=== PATIENT | male | born 1950 | race Caucasian/White ===

== ENCOUNTER 2024-10-06 10:29 | Outpatient (REF) | payer MEDICARE, SELFPAY ==
--- NOTE | ~2024-10-06 | XR_ITS ---
EXAMINATION: XR PELVIS 3 OR MORE VIEWS, XR LUMBAR SPINE 4 OR MORE VIEWS HISTORY: M54.9 - Dorsalgia, unspecified COMPARISON: There are no prior studies for comparison. FINDINGS: AP, and neutral, flexion, and extension lateral views of the lumbar spine and a single AP view of the pelvis are submitted. The vertebral bodies maintain normal height and alignment without evidence of fracture or spondylolisthesis. There is no abnormal motion with flexion or extension. There is diffuse mild degenerative disc disease with disc space narrowing and osteophyte formation. There is osteoarthritis of the facet joints. The bones of the pelvis are intact without evidence of fracture or dislocation. There is degenerative change of the sacroiliac joints. The hip joint spaces are maintained. There are vascular calcifications. XR/XR lumbar spine 4V min IMPRESSION: 1. Mild degenerative disc disease. No abnormal motion with flexion or extension. 2. No evidence of fracture of the pelvis. Electronically signed by: Mihir Jacobs MD 10/14/2024 07:16 AM HUSSEIN
--- NOTE | ~2024-10-06 | XR_ITS ---
EXAMINATION: XR PELVIS 3 OR MORE VIEWS, XR LUMBAR SPINE 4 OR MORE VIEWS HISTORY: M54.9 - Dorsalgia, unspecified COMPARISON: There are no prior studies for comparison. FINDINGS: AP, and neutral, flexion, and extension lateral views of the lumbar spine and a single AP view of the pelvis are submitted. The vertebral bodies maintain normal height and alignment without evidence of fracture or spondylolisthesis. There is no abnormal motion with flexion or extension. There is diffuse mild degenerative disc disease with disc space narrowing and osteophyte formation. There is osteoarthritis of the facet joints. The bones of the pelvis are intact without evidence of fracture or dislocation. There is degenerative change of the sacroiliac joints. The hip joint spaces are maintained. There are vascular calcifications. XR/XR pelvis min 3V IMPRESSION: 1. Mild degenerative disc disease. No abnormal motion with flexion or extension. 2. No evidence of fracture of the pelvis. Electronically signed by: Mihir Jacobs MD 10/14/2024 07:16 AM HUSSEIN
== END 2024-10-06 10:30 | disposition home or self-care (01) ==
LOC: HO.HOSX 10:29
PROVIDERS: PCP Internal Medicine; Visit Provider Physician Assistant
DX: M54.9 Dorsalgia, unspecified (principal); M46.1 Sacroiliitis, not elsewhere classified
CPT/HCPCS: 72110; 72190; 99202

== ENCOUNTER 2024-10-06 10:29 | Outpatient (AMB) | payer MEDICARE, SELFPAY ==
--- NOTE | 2024-10-06 10:31 | A.SPINEOV_ITS ---
Vital Signs 10/06/24 10:35 Height 5 ft 10 in Weight 163 lb BMI 23.4 Intake Visit Reasons: chronic recurrent sacroiliitis Intake Note: Mr. Nicolas is here today c/o Low back pain that radiates to up towards the neck. Member Of The [employer] Required: No Allergies No Known Allergies Allergy (Verified 10/06/24 10:36) Physical Exam Vital Signs: BMI result Body Mass Index 23.4 Assessment & Plan Assessment & Plan (1) Back pain: Code(s): M54.9 - Dorsalgia, unspecified Category: Medical Plan Dear Dr Rob, Thank you for referring Mr Nicolas to our office today. He is a very nice retired fox, presents for evaluation of sacroiliac pain that began about 4 years ago. Initially it was very manageable, but now has gotten to a point where he barely leaves his recliner all day. The pain is located along the belt line and does not radiate down his leg. It is aggravated with prolonged sitting or prolonged standing and walking. Bending forward is the worst position. The only place he can get comfortable at this point is in a recliner and he will spend most of his day doing that. He has tried things like Motrin and Tylenol but those really do not do much for him. Did undergo a number of injections at your office. It sounds like he may have had an facet block which gave him some relief, then he underwent an ablation and did not report any success from that. Then he underwent lateral branch blocks and had a 90% success rate for about a week. He was sent today for evaluation of possible SI joint fusion. Conservative treatment has been tried in the form of physical therapy, chiropractic, anti- inflammatories and cortisone injections as listed above. PMH: High cholesterol, diabetes but he is very well controlled, hypertension, hernia surgery. Other than that he tells me he is very healthy. Social hx: He has 2 glasses of scotch a day, does not smoke use any recreational drugs Medications: Metformin, lisinopril, rosuvastatin Allergies: None Physical exam: Patient is awake alert oriented no acute distress, very slow to stand up with a lot of discomfort trying to get to a vertical posture, he lays flat on the examining table and has ELIZABETH testing on the left with reproducible pain in the SI joint. Straight leg raise negative. Positive finger Devante test. Positive compression test to the SI joint area. Imaging review: There is a lumbar MRI done at [facility] and this shows some modest disc degeneration, I sent him for flexion-extension x-rays and it shows no signs of instability. AP pelvic view however shows very sclerotic SI joints. Impression: 74-year-old man presenting with sacroiliitis, pain across his belt line bilaterally, particularly worse if he sitting for any length of time constantly changing positions but also standing and walking can be uncomfortable. The pain has been there for 4 years and steadily gotten worse, it is at a point now where he barely leaves his recliner all day because of the amount of pain he is in trying to do activities. He did get 90% relief from the lateral branch blocks that you performed on him. He has sclerosis of his SI joints seen on the x-ray, and no significant lumbar pathology. Typically Dr. Ferro likes to successive injections with similar success before he considers SI joint fusion. I will send an order back to your office for consideration of another lateral branch block and if it has the similar response, we could see him back and book him for SI joint fusion. I did briefly discuss the procedure at length in the need for the subsequent injection. Thank you for allowing us to care for your patient. The total time spent with this visit with this patient was 45 minutes reviewing history, physical exam, lumbar and pelvic imaging review, and implementation of treatment plan or further diagnostic testing Conrado Ferro MD,PhD [facility] Orders: Orders XR lumbar spine 4V min Today M54.9 - Dorsalgia, unspecified XR pelvis min 3V Today M54.9 - Dorsalgia, unspecified Referrals Pain Management Referral M54.9 - Dorsalgia, unspecified Coding Level of Care Code New Pt Level 4 (15223) Diagnoses Back pain M54.9
[2024-10-06 10:35] VITALS: BMI 23.4
== END 2024-10-06 11:54 | disposition home or self-care (01) ==
PROVIDERS: PCP Internal Medicine; Visit Provider Physician Assistant
DX: M54.9 Dorsalgia, unspecified (principal)
CPT/HCPCS: 99204

== ENCOUNTER → 2024-10-06 11:08 | Outpatient (BNV) | payer MEDICARE, SELFPAY | PROVIDERS: PCP Internal Medicine; Visit Provider Radiology Diagnostic Radiology | DX: M54.9 Dorsalgia, unspecified (principal) | CPT/HCPCS: 72110; 72190 ==

== ENCOUNTER 2024-11-26 14:45 | Outpatient (AMB) | payer MEDICARE, SELFPAY ==
--- NOTE | 2024-11-26 14:48 | A.SPINEOV_ITS ---
Intake Visit Reasons: F/U 2nd set of inj didn`t work Intake Note: Mr. Nicolas is here today for a F/u after injections. Photographic Equipment Inspector Required: No Allergies No Known Allergies Allergy (Verified 10/06/24 10:36) Assessment & Plan Assessment & Plan (1) Back pain: Code(s): M54.9 - Dorsalgia, unspecified Category: Medical Plan Mr Nicolas came back to review the results of his latest lateral branch block. He did get relief after about 2 or 3 days and it lasted maybe 1-2 days of im provement in his pain. We would consider this a positive response to the injections so therefore we will as previously plan proceed with SI joint fusion. The patient wishes to have the left side done 1st because that it has been bothering him more. We discussed the procedure at length. We have tentatively planned it for 01/07/2025 Pt was given risk and benefits of surgery including but not limited to infection, hematoma , nerve injury,durotomy, weakness,bowel/bladder injury, persistent pain, hardware failure as well as the option to continue with conservative treatment and patient wishes to proceed with surgery. Pt is aware they should stop their aspirin 7 days prior to surgery. All questions were answered to the best of our ability. If there is anything about this patients medical history that we have overlooked or concerns you have about us proceeding with surgery we would appreciate any input you can offer. Total amount of time spent in this visit was 20 minutes in discussion of symptoms, previous lumbar and SI joint imaging results and subsequent plan of care Conrado Ferro MD,PhD [facility] Coding Level of Care Code Est Pt Level 3 (90332) Diagnoses Back pain M54.9
--- OUTSIDE RECORDS SUMMARY | 2024-11-26 15:53 | XMS_ITS ---
Author Organization [facility] Address [address] [place] [address] Care Team Providers Care Metal Bench Patternmaker Name Role Phone Nikolas Webb MD Primary Care Provider Unava ilable Sarah Serna Unavailable [phone] REASON FOR VISIT BULB SORTER PPWK Entered Encounters Encounter Location Date Provider Diagnosis [facility] [address] [place] [address] 11/02/2024 Sarah Serna Plan Of Treatment Next Appt Details Provider Name:Sarah Shah Kareem , 12/15/2024 01:00:00 PM, [address] [facility], [place], [address], Progress Notes * Vazquez LAWRENCE DDOB:[birth year] (74 yo M)Acc No.[id number]:11/02/2024 Patient:?Vazquez LAWRENCE :1950???Age:74 Y???Sex:Male Address:[address] [place] [address], [place], [address] * true * Date:? Generated for Printi ng/Fapeymang/eTransmitting on:?11/26/2024 03:52 PM EST
--- OUTSIDE RECORDS SUMMARY | 2024-11-26 15:53 | XMS_ITS | Patient Health Record ---
Author Organization [facility] Address [address] [place] [address] Care Team Providers Care Branner Machine Tender Name Role Phone Nikolas Webb MD Primary Care Provider Sarah Sher Unavailable [phone] Allergies Allergen (clinical drug ingredient) Drug/Non Drug Allergy documented on EMR Reaction Allergy Type Onset Date Status Eggplant (uncoded) vomiting Allergy A ctive Reason For Referral No Information Medications Medication SIG (Take, Route, Frequency, Duration) Notes Start Date End Date Status Rosuvastatin Calcium Active Lisinopril Active glipiZIDE Not-Taking Diclofenac Sodium Ac tive Immunizations Vaccine Route Administration Date Status Comme nts Influenza Unknown 07/07/2018 Refused Influenza Unknown 07/28/2018 Administered Social History Tobacco Use: Social History Observation Description Date Details (start date - stop date) Never Smoker NA - NA Tobacco Use/Smoking Question Answer Notes Are you a: nonsmoker Additional Findings: Tobacco Non-User Current no n-smoker Alcohol Screen Question Answer Notes Did you have a drink contain ing alcohol in the past year? Yes How often did you have a dri nk containing alcohol in the past year? 2 to 4 times a month (2 points) Points 2 Interpretation Negative Tobacco use other than smoking: Question Answer Notes Are you an other tobacco user? No Problems Problem Type SNOMED Code ICD Code Onset Dates Problem Status W/U Status Risk Notes Problem Localized, primary osteoarthritis of the ankle and/or foot (722447938) Primary osteoarthrit is, left ankle and foot (M19.072) Active confirmed Encounters Encounter Location Date Provider Diagnosis [facility] [address] [place] [address] 10/19/2024 Sarah Kareem [facility] [address] [place] [address] 11/02/2024 Sarah Serna Plan Of Treatment Pending Test Test Name Order Date X ray : Foot, left 3V 07/07/2018 Next Appt Details Provider Name:Sarah Serna , 12/15/2024 01:00:00 PM, [address] [facility], [place], [address], Insurance Providers Payer Name Payer Address Payer Phone Subscriber Number Group Number Insured Name Patient Relationship to Insured Coverage Start Date Coverage End Date Medicare National Govt Svcs Inc [address] [place] [address] [id number] Vazquez Nicolas Self - patient is the insured 3 [employer] [address] [place] [address] [phone] [id number] Vazquez Nicolas Self - patient is the insured Medical (General) History Medical History History ICD Code Diabetic Hypertension Measles Mumps Back,Hip,and Knee pain covid-19 Gout Surgical History Surgery Date(Month/Year) Hernia
--- OUTSIDE RECORDS SUMMARY | 2024-11-26 15:53 | XMS_ITS ---
Author Organization [facility] Address [address] [place] [address] Care Team Providers Care Stock Roller Name Role Phone Nikolas Wbeb MD Primary Care Provider Unava ilable Sarah Serna Unavailable [phone] REASON FOR VISIT ON Encounters Encounter Location Date Provider Diagnosis [facility] [address] [place] [address] 10/19/2024 Sarah Serna Plan Of Treatment Next Appt Details Provider Name:Sarah Serna , 12/15/2024 01:00:00 PM, [address] [facility], [place], [address], Progress Notes * Vazquez LAWRENCE DDOB:[birth year] (74 yo M)Acc No.[id number]:10/19/2024 Patient:?Vazquez LAWRENCE :1950???Age:74 Y???Sex:Male Address:[address] [place] [address], [place], [address] * true * Date:? Generated for Printi amee/Ekta/eTransmitting on:?11/26/2024 03:52 PM EST
== END 2024-11-26 15:14 | disposition home or self-care (01) ==
PROVIDERS: PCP Internal Medicine; Visit Provider Physician Assistant
DX: M54.9 Dorsalgia, unspecified (principal)
CPT/HCPCS: 99213

== ENCOUNTER → 2024-11-26 14:45 | Outpatient (BNVA) | payer MEDICARE, SELFPAY | PROVIDERS: PCP Internal Medicine; Visit Provider Physician Assistant | DX: M54.9 Dorsalgia, unspecified (principal) | CPT/HCPCS: 99212 ==

== ENCOUNTER 2025-01-21 07:20 | Day surgery (SDC) | payer MEDICARE, SELFPAY ==
[2025-01-19 13:57] VITALS: BMI 24.8
--- NOTE | 2025-01-20 12:15 | P.CONAN_ITS ---
Documented by User: Stephanie Abebe NP 01/20/25 12:16 HPI - Anesthesia Eval Consult details Narrative: 74yo M for Left Sacroiliac Joint Fusion PMFSH Active Problems Active Problems: All Active Problems Back pain (Acute) Past Medical History Medical History Arthritis Arthralgia Sacroiliitis Diabetes HTN (hypertension) Elevated cholesterol Surgical History Surgical History Hx of hand surgery H/O colonoscopy Hx of hernia repair Social History Social History Are you a primary veterinarian laboratory animal care to a significant other at home: No Do you presently have visiting nurse or other home services: No Patient Tobacco Use Status: Never used Tobacco Use of substances other than those prescribed or required for medical reasons: No Have you been hit, kicked, punched, or otherwise hurt by someone within the past year? If so, by whom?: No Spiritual Healthcare Practices: no Congregational Healthcare Practices: no Cultural Healthcare Practices: no Are you DNR?: Yes Advance Directives Information Provided: Yes (advised to bring copies DOS) Advance Directives on File: No Poor oral hygiene: No Meds Allergies Allergy/AdvReac Type Severity Reaction Status Date / Time eggplant Allergy Intermediate Vomiting Verified 01/21/25 07:28 Home Medications ?Medication ?Instructions ?Recorded ?Confirmed ?Last Taken ?Type lisinopril 20 mg tablet 20 mg PO QAM 01/19/25 01/21/25 Unknown History metformin 500 mg tablet,extended 1,000 mg PO BID 01/19/25 01/21/25 Unknown History release 24 hr flwlcusr-ak-cdtop 300 mcg-K 60 1 tab PO QAM 01/19/25 01/21/25 Unknown History mcg-lycop 600 mcg-lutein 300 mcg tablet (Centrum Silver Men) rosuvastatin 5 mg tablet 5 mg PO BEDTIME 01/19/25 01/21/25 Unknown History Exam Height,Weight and Vital Signs: Height 5 ft 10 in Weight 78.471 kg Assessment and Plan Assessment Anesthesia Assessment: Chart Reviewed Documented by User: Verónica Mayfield MD 01/21/25 07:52 [facility] Past Medical History Medical History Arthritis Arthralgia Sacroiliitis Diabetes HTN (hypertension) Elevated cholesterol Surgical History Surgical History Hx of hand surgery H/O colonoscopy Hx of hernia repair History of Problems with Anesthesia: No Social History Social History Are you a primary veterinarian laboratory animal care to a significant other at home: No Do you presently have visiting nurse or other home services: No Patient Tobacco Use Status: Never used Tobacco Use of substances other than those prescribed or required for medical reasons: No Have you been hit, kicked, punched, or otherwise hurt by someone within the past year? If so, by whom?: No Spiritual Healthcare Practices: no Congregational Healthcare Practices: no Cultural Healthcare Practices: no Are you DNR?: Yes Advance Directives Information Provided: Yes (advised to bring copies DOS) Advance Directives on File: No Poor oral hygiene: No Meds Allergies Allergy/AdvReac Type Severity Reaction Status Date / Time eggplant Allergy Intermediate Vomiting Verified 01/21/25 07:28 Home Medications ?Medication ?Instructions ?Recorded ?Confirmed ?Last Taken ?Type lisinopril 20 mg tablet 20 mg PO QAM 01/19/25 01/21/25 Unknown History metformin 500 mg tablet,extended 1,000 mg PO BID 01/19/25 01/21/25 Unknown History release 24 hr cubyieoh-at-hjpyj 300 mcg-K 60 1 tab PO QAM 01/19/25 01/21/25 Unknown History mcg-lycop 600 mcg-lutein 300 mcg tablet (Centrum Silver Men) rosuvastatin 5 mg tablet 5 mg PO BEDTIME 01/19/25 01/21/25 Unknown History Exam Airway Mallampati Class: III TM Dist: >3cm Neck ROM: Full Loose/Missing/Broken Teeth: No Heart: RRR Lungs: CTA Assessment and Plan Assessment Anesthesia Assessment: Anesthesia Plan Discussed Final Anesthetic Review History of Problems with Anesthesia: No NPO: Yes ASA Class: III (significant ETOH consumption, several drinks of hard liquor a day) Final Preanesthetic Review: Meds/Allgs Chart Reviewed, Consent Obtained/Reviewed and Anes Risks/Benef Reviewed Patient Risk: Intermediate Procedure Risk: Intermediate Anesthetic Plan Anesthetic Plan: GA Disposition: Standard PACU
--- OUTSIDE RECORDS SUMMARY | 2025-01-20 13:55 | XMS_ITS | Patient Health Record ---
[facility] Address [address] [place] [address] Care Team Providers Care Software Configuration Specialist Name Role Phone Nikolas Webb MD Primary Care Provider Unava ilable Black, Sarah Unavailable [phone] Allergies Allergen (clinical drug ingredient) Drug/Non Drug Allergy documented on EMR Reaction Allergy Type Onset Date Status Eggplant (uncoded) vomiting Allergy A ctive Results Component Value Reference Range Notes HEMOGLOBIN A1C (GLYCOHEMOGLO BIN) Reviewed date:12/15/2024 03:22:35 PM Interpretation: Performing Lab: Notes/Report: HEMOGLOBIN A1C % (HH) 6.5 X ray : Foot, right 3V Reviewed date:12/15/2024 05:05:15 PM Interpretation:See Examination above Performing Lab: Notes/Report: See Examination above Reason For Referral No Information Medications Medication SIG (Take, Route, Frequency, Duration) Notes Start Date End Date Status Medrol kiarra 4mg as directed orally a s directed for 6 days 12/15/2024 Active Diclofenac Sodium No t-Taking glipiZIDE Not-Taking metFORMIN HCl Active Lisinopril Active Rosuvastatin Calcium Active Aspirin Active Immunizations Vaccine Route Administration Date Status Comme nts Influenza Unknown 07/07/2018 Refused Influenza Unknown 07/28/2018 Administered Social History Tobacco Use: Social History Observation Description Date Details (start date - stop date) Never Smoker NA - NA Tobacco use other than smoking: Question Answer Notes Are you an other tobacco user? 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) Active confirmed Problem Localized, primary osteoarthritis of the ankle and/or foot (812859904) Osteoarthritis of left ankle and foot (M19.072) Active confirmed Problem 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 (148876661) Acute idiopathic gout involving toe of right foot (M10.071) Active confirmed Vital Signs Blood pressure diastolic 68 mm Hg 12/15/2024 Height 5 ft 10 in in 12/15/2024 Blood pressure systolic 118 mm Hg 12/15/2024 Weight 160 lbs 12/15/2024 BMI 22.96 kg/m2 12/15/2024 Encounters Encounter Location Date Provider Diagnosis [facility] [address] [place] [address] 12/15/2024 Sarah Black Pain in right foot M79.671 ; Acute idiopathic gout involving toe of right foot M10.071 ; Pain in right ankle and joints of right foot M25.571 ; Bursitis of right foot M77.51 ; Acquired hallux interphalangeus of right foot M20.11 ; Osteoarthritis of left ankle and foot M19.072 and Type 2 diabetes mellitus without complications [facility] [address] 10/19/[facility]24 [facility]s [facility] [address] 11/02/2024 [facility]ingo [facility] [address] 12/15/2024 Sarah Serna [facility] [address] 12/21/2024 Sarah Serna Assessments Encounter Date Diagnosis (ICD Code) Assessment Notes Treatment Notes Treatment Clinical Notes Section Notes 12/15/2024 Pain in right foot (ICD-10 - M79.671) 12/15/2024 Acute idiopathic gout involving toe of right foot (ICD-10 - M10.071) 12/15/2024 Pain in right ankle and joints of right foot (ICD-10 - M25.571) 12/15/2024 Bursitis of right foot (ICD-10 - M77.51) 12/15/2024 Acquired hallux interphalangeus of right foot (ICD-10 - M20.11) 12/15/2024 Osteoarthritis of left ankle and foot (ICD-10 - M19.072) 12/15/2024 Type 2 diabetes mellitus without complications (ICD-10 - E11.9) Plan Of Treatment Pending Test Test Name Order Date *Uric Acid, Serum 12/15/2024 *Sedimentation Rate-Westergren C-Reactive Protein, Quant 12/15/2024 X ray : Foot, left 3V 07/07/2018 Insurance Providers Payer Name Payer Address Payer Phone Subscriber Number Group Number Insured Name Patient Relationship to Insured Coverage Start Date Coverage End Date Medicare National Govt Svcs Inc [address] [place] [address] [id number] Vazquez Nicolas Self - patient is the insured 3 [employer]ex Blue [facility] [address] [place] [address] [phone] [id number] Vazquez Nicolas Self - patient is the insured Medical (General) History Medical History History ICD Code Diabetic Hypertension Measles Mumps Back,Hip,and Knee pain covid-19 Gout Surgical History Surgery Date(Month/Year) Hernia
--- OUTSIDE RECORDS SUMMARY | 2025-01-20 13:56 | XMS_ITS ---
Author Organization [facility] Address [address] [place] [address] Care Team Providers Care Senior Ios Developer Name Role Phone Nikolas Webb MD Primary Care Provider Unava ilable Sarah Serna Unavailable [phone] REASON FOR VISIT A1C Encounters Encounter Location Date Provider Diagnosis [facility] [address] [place] [address] 12/15/2024 Sarah Serna Plan Of Treatment No Information Progress Notes * Vazquez LAWRENCE DDOB:[birth year] (74 yo M)Acc No.[id number]:12/15/2024 Patient:?Vazquez LAWRENCE :1950???Age:74 Y???Sex:Male Address:[address] [place] [address], [address] * true * Date:? Generated for Virgili amee/Ekta/eTransmitting on:?01/20/2025 01:55 PM EDT
--- OUTSIDE RECORDS SUMMARY | 2025-01-20 13:56 | XMS_ITS ---
Author Organization [facility] [place] Address [address] [place] [address] Care Team Providers Care Supervisor Hanging And Trimming Name Role Phone Nikolas Webb MD Primary Care Provider Unava ilable Black Sarah Unavailable [phone] Allergies Allergen (clinical drug ingredient) Drug/Non Drug Allergy documented on EMR Reaction Allergy Type Onset Date Status Eggplant (uncoded) vomiting Allergy A ctive Results Component Value Reference Range Notes X ray : Foot, right 3V Reviewed date:12/15/2024 05:05:15 PM Interpretation:See Examination above Performing Lab: Notes/Report: See Examination above REASON FOR VISIT Pcp- 12/01, Foot pain Medications Medication SIG (Take, Route, Frequency, Duration) Notes Start Date End Date Status Medrol kiarra 4mg as directed orally a s directed for 6 days 12/15/2024 Active metFORMIN HCl Active Lisinopril Active Rosuvastatin Calcium Active Aspirin Active Diclofenac Sodium No t-Taking glipiZIDE Not-Taking Social History Tobacco Use: Social History Observation Description Date Details (start date - stop date) Never Smoker NA - NA Tobacco use other than smoking: Question Answer Notes Are you an other tobacco user? No Tobacco Control (Standard) Question Answer Notes Tobacco use: Nonsmoker Additional Findings: Tobacco non-user Current no nsmoker AUDIT-C (Standard) Question Answer Notes Did you have a drink contain ing alcohol in the past year? Yes How often did you have a dri nk containing alcohol in the past year? Daily or almost daily (4 points) How many drinks did you have on a typical day when you were drinking in the past year? 1 or 2 drinks (0 point) How often did you have six o r more drinks on one occasion in the past year? 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) Active confirmed Problem Localized, primary osteoarthritis of the ankle and/or foot (769433929) Osteoarthritis of left ankle and foot (M19.072) Active confirmed Problem Type II diabetes mellitus without complication (828714275) Type 2 diabetes mellitus without complications (E11.9) Active confirmed Vital Signs Height 5 ft 10 in in 12/15/2024 Weight 160 lbs 12/15/2024 BMI 22.96 kg/m2 12/15/2024 Blood pressure systolic 118 mm Hg 12/16/19 25 Blood pressure diastolic 68 mm Hg 025 Encounters Encounter Location Date Provider Diagnosis [facility] [address] 12/15/2024 Sarah Black Pain in right foot M79.671 ; Acute idiopathic gout involving toe of right foot M10.071 ; Pain in right ankle and joints of right foot M25.571 ; Bursitis of right foot M77.51 ; Acquired hallux interphalangeus of right foot M20.11 ; Osteoarthritis of left ankle and foot M19.072 and Type 2 diabetes mellitus without complications E11.9 Assessments Encounter Date Diagnosis (ICD Code) Assessment [...] complications (ICD-10 - E11.9) Plan Of Treatment Medication Medication Name Sig Start Date Stop Date Notes Medrol kiarra 4mg as directed orally as directed for 6 days 0 12/15/2024 Pending Test Test Name Order Date *Uric Acid, Serum 12/15/2024 *Sedimentation Rate-Anthonyren 5 C-Reactive Protein, Quant 12/15/2024 Next Appt Details Follow Up: prn, Reason: Progress Notes * Vazquez LAWRENCE DDOB:[birth year] (74 yo M)Acc No.[id number]:12/15/2024 Progress Notes Patient:?Vazquez LAWRENCE Provider:?Sarah Serna DPM :1950???Age:74 Y???Sex:Male Donavan e:12/15/2024 Address:[address] [place], [place] [id number] Pcp:Nikolas Webb MD Subjective: * Chief Complaints: * ???Pcp- 12/01Foot pain * HPI: ???Foot Pain:?Location:?RIGHT midfoot and great toe.?Duration:?, several weeks.?Onset:?sudden.?Course:?worse.?Aggravated:?any pressure, not wearing inserts.?Treatments:?rest/alter normal daily activity.?Severity/Quality:?moderate, severe.? * ROS:?General/Constitutional:?Nausea?denies.?Vomiting?denies.?Hunger Thirst?denies.?Loss appetite?denies.?Chills?denies.?Fatigue?denies.?Fever?denies.?Night Sweats?denies.?Unexplained weight loss?denies.?Unexplained weight gain?denies.?HEENTM:?Dentures?denies.?Dizziness?denies.?Glasses/contacts?admits.?Retinopathy?de nies.?Blurred/double vision?denies.?TMJ?denies.?Discharge/drainage?denies.?Implants?denies.?Sore throat?denies.?Dental implants?denies.?Hard of hearing ?denies.?Difficulty chewing/swallowing/speaking?denies.?Nose bleeds?denies.?Sore mouth?denies.?Respiratory:?On Oxygen?denies.?Pneumonia/pleurisy?denies.?Bronchitis?denies.?Emphysema?denies.?C oughing?denies.?Cough blood?denies.?Shortness of breath?denies.?Wheezing?denies.?Cardiovascular:?Pacemaker?denies.?MVP?denies.?WPW?denies.?CHF?denies.?Heart attack?denies.?Septal defect?denies.?Rapid beat?denies.?Chest pain ?denies.?Atrial Fib.?denies.?Murmur/Palpitations?denies.?Gastrointestinal:?Hemorrhoids?denies.?Stomach/Abdominal pain?denies.?Dark blood stool?denies.?Irritable bowel ?denies.?Constipation?denies.?Diarrhea?denies.?Hematology:?Swelling?denies.?Clots?denies.?Varicose Veins?denies.?Bruising?denies.?Bleeding problem?denies.?Genitourinary:?Blood urine?denies.?Frequent/Painfu/urination/bladder control?denies.?Kidney stones?denies.?Infection (UTI)?denies.?Nephropathy?denies.?sex trans dis (STD)?denies.?Prostate?denies.?Musculoskeletal:?Hammertoes?denies.?Bunions?denies.?Back Pain?admits.?Muscle Cramps/ Resting?denies.?Muscle cramps / walking?denies.?Generalized aches and pains?admits.?Weakness?denies.?Integ.:?Forbes?denies.?Scars?denies.?Corns/calluses?denies.?Ingrown nails?denies.?Painful nails?denies.?Open Sores?denies.?Rashes?denies.?Neurologic:?Difficulty sleeping?denies.?Brain disorder?denies.?Numbness?denies.?Balance trouble?denies.?Confusion?denies.?Fainting/blackouts?denies.?Tingling?denies.?Tr emors?denies.? * Medical History:? * Surgical History:?Hernia * Hospitalization/Major Diagno stic Procedure:?Denies Past Hospitalization * Family History:?Mother: dece ased.?Father: , diagnosed with Diabetic - NIDDM.? * Social History:?Tobacco Use:?Tobacco use other than smoking?Are you an other tobacco user??No ?Tobacco Control (Standard)?Tobacco use:?Nonsmoker ?Additional Findings: Tobacco non-user?Current nonsmoker ???Drugs/Alcohol:?Drugs?Have you used drugs other than those for medical reasons in the past 12 months??No ???Miscellaneous:?Caffeine: yes, frequency:, 1-2 cups per day. ?Children: no. ?Exercise: no. ?Marital status: . ?Occupation: retired [employer]. ???Drug/Alcohol:?AUDIT-C (Standard)?Did you have a drink containing alcohol in the past year??Yes ?How often did you have a drink containing alcohol in the past year??Daily or almost daily (4 points) ?How many drinks did you have on a typical day when you were drinking in the past year??1 or 2 drinks (0 point) ?How often did you have six or more drinks on one occasion in the past year??Never (0 point) ?Points?4 ?Interpretation?Positive * Medications:?TakingmetFORMIN HCl Aspirin Lisinopril Rosuvastatin Calcium Taking metFORMIN HCl Taking Aspirin Taking Lisinopril Taking Rosuvastatin Calcium Not-Taking/PRNDiclofenac Sodium glipiZIDE Medication List reviewed and reconciled with the patientNot-Taking/PRN Diclofenac Sodium Not-Taking/PRN glipiZIDE Medication List reviewed and reconciled with the patient * Allergies:?Eggplant: vomitin g - Allergyyes[Allergies Verified] Objective: * Vitals:?Ht: 5 ft 10 in, Wt: 160, BMI: 22.96, Shoe size: 10.5 -11, BP: 118/68 mm Hg, BS: not taken, Wt-k.58 kg. * ???Past Orders: ???Lab:HEMOGLOBIN A1C (GLYCO HEMOGLOBIN) (Order Date - 06/18/2024) (Collection Date & Time - 12/15/2024 03:21 PM) ? Value Reference Range ?HEMOGLOBIN A1C % (HH) 6.5 * Examination: ???Ophthalmology Referral: ?DIABETES EYE EXAM?Procedure Performed:?No ?Eye Exam not performed:?No reason specified ?Retinal Screening Performed:?No ?Findings of Diabetic Eye Exam:?no retinopathy?General Examination: ?GENERAL APPEARANCE:?Reveals a pleasant, alert, well nourished, well- developed, well hydrated individual, who demonstrates proper attention to hygiene/body habitus, and is in no acute distress, Pt serves as own historian for office visit today.?ORIENTED:?person, place, and time.?FOOT EXAM:?Lower Extremity Neurological Exam performed:?Yes ?Visual exam of foot performed:?Yes ?Date?12/15/2024 ?Sensory testing performed:?sensations normal ?Sensory and motor testing performed:?sensations normal ?Pedal pulse taking performed:?2+ ?Footwear Evaluation?Footwear Evaluation performed:?Yes?Orthopedic: ?MUSCLE STRENGTH:?5/5 all groups in a symmetrical fashion, B/L.?GAIT ABNORMALITY:?Pronated, abducted angle and base of gate, B/L.?FOOT MORPHOLOGY:?Pes Planus structure, Semi-rigid, B/L.?BUNION:? Medially prominent 1st MPJ,(+) Pain on palpation,inflammation present medially,Lateral tracking 1st MPJ incompletely reducible, RIGHT 1st MTPJ and IPJ joint (+) calor (+) erythema (+) edema, Crepitus with ROM present PAin on ROM.?DIGITAL DEFORMITIES:?Digital contracture, PIPJ, 2-5 B/L, incompl-reducible with WB, or to push-up test, no over, nor underlapping.?FOOTWEAR:?, good condition, exhibit proper fit and accommodation for pedal deformities. OT were inspected and noted to be worn, but in good condition giving proper support at the present time.?Neurological: ?SENSORY:?Neurological exam reveals intact sensorium, pain sensation normal, vibration sensation intact, pinprick sensation is normal in the lower extremities, Pt denies, anesthesia, burning, paresthesia, tingling, B/L.?TINEL'S COMPRESSION:? Negative, Saphenous nerve distribution, Right.?Vascular: ?DORSALIS PEDIS PULSE:?2/4, B/L.?POSTERIOR TIBIAL PULSE:?2/4, B/L.?CAPILLARY REFILL:?instantaneous, B/L.?TEMPERATURE GRADIENT:?within normal limits.?X-Rays - IMAGING REPORT: ?Clinical Indication(s):? Evaluate Biomechanical Deformity,Evaluate for Fracture,Evaluate for possible Gout.?Views:?AP, LAT, MO, RIGHT??Taken by trained?Podiatric Trap Setter (MB?).?Findings:?normal bone and soft tissue density consistent for patients age and sex.?HAV:?increased Hallux Interphalangeus angle with asymmetrical IPJ and joint degeneration, there is asymmetrical narrowing of the 1st MPJ joint space, there is increased density of the 1st MPJ with asymmetrical joint space narrowing, there is squaring of the 1st MTH, there is an exostosis located at the dorsal aspect of the 1st MTH.?Fracture:?Negative fractures identified.? Assessment: * Assessment: 1.?Pain in right foot - M79. 671???2.?Acute idiopathic gout involving toe of right foot - M10.071 (Primary)???Specify :Acute problem, Complicated w/ Multiple Tx Options(4) Dx New problem, Prognosis Uncertain (4)???3.?Pain in right ankle and joints of right foot - M25.571???4.?Bursitis of right foot - M77.51???5.?Acquired hallux interphalangeus of right foot - M20.11???6.?Osteoarthritis of left ankle and foot - M19.072???Specify :Chronic problem, Worse (4)???7.?Type 2 diabetes mellitus without complications - E11.9??? Plan: * Treatment: 2.?Pain in right foot?Imaging: X ray : Foot, right 3V (Performed Date - 12/15/2024)?See Examination above * Procedure Codes:?50653 X-RAY EXAM OF RIGHT FOOT 3V, Modifiers: 26 , RT * Preventive Medicine:? ??Counseling:?Discussion:?-14: Office or other outpatient visit for the evaluation and management of an established patient, which required a medically appropriate history and/or examination and MODERATE level of DECISION MAKING for: 1 OR MORE CHRONIC PROBLEM(S) THATS WORSENING, 2 STABLE CHRONIC PROBLEMS, A NEWLY DIAGNOSED PROBLEM WITH UNCERTAIN PROGNOSIS, AN ACUTE COMPLICATED INJURY WITH MULTIPLE TREATMENT OPTIONS, OR AN ACUTE PROBLEM WITH ACCOMPANYING SYSTEMIC SYMPTOMS, THAT POSE(S) A MODERATE RISK OF MORBIDITY. THIS CONDITION MAY ALSO INCLUDE RX DRUG MANAGEMENT, OR A DECISON FOR MINOR SURGERY. The visit on the day of the encounter encompassed interpreting the data and educating the patient as to the nature of their condition, treatment options available according to their individual PMH, meds, allergies, and overall health/living conditions, as well as any potential risks or complications that may occur from a failure to adhere to, and participate in, the recommended course of therapy. The discussion included a complete verbal, and/or written explanation of the examination results, any x-rays taken, the proposed diagnosis, and outline of the treatment plan. A schedule for future care needs was also explained. The patient verbalized an understanding of the instructions at this time and agreed to be an active participant in their treatment. If the patient should think of any questions or concerns after the visit, I have encouraged the patient to call the office.?Arthritis:?The patient was counseled on the various etiologies for their Arthritis including genetic, history of injury or trauma, abnormal foot biomechanics leading to excessive joint wear, and use/overuse. We discussed the various treatment options from no treatment, to topical analgesics such as Biofreeze gel, Aspercream, Voltaren gel, Lidoderm patches, CBD oils, THC creams, and Custom-compounded topical cream preparations to natural oral products such as Glucosamine Sulfate/Chondroitin/MSM/Collegen to analgesic Tylenol, to anti-inflammatory medications such as Ibuprofen/Naproxen, and the use of oral steroids if needed. Cardiac, Kidney, and GI issues were discussed RE: potential complications of oral anti-inflammatories. We discussed several other treatment options consisting of accom shoes, supportive innersoles, AFO bracing/support, cortisone injection therapy, and surgical resection of the arthritic joint(s) or fusion reconstruction if necessary. We discussed the advantages and disadvantages of conservative (vs) surgical treamtents including pain relief, improved function/activities of daily life, return to exercise to failure, expense, systemic complications, infection, [id number], prolongued postop course. Patient questions re: the various treatment options available, their successes and potential failures, and local company intermodal truck driver effects were discussed and the answers were verbally confirmed understood, The Pt. was counseled on the x-rays,treatment options, and the importance of following all homecare instructions.?Gout:?I explained to the patient the possible etiologies for Gout, including genetic, excess dietary protein, excess dietary sugar, alcohol, diuretic medications, dehydration, and/or previous surgery. An information sheet re: the foods to enjoy as well as avoid was dispensed and detailed at the time of visit. We discussed the risks/benefits of all the different treatment options for Gout including: No treatment at all, Rest, Ice, NSAIDs(only if well tolerated after meals), Oral steroids, Colchicine, New/supportive Shoegear, Foot/Ankle AFO Bracing, Arch support/shoe inserts, Custom orthoses, Topical analgesics including Aspercream/Voltaren gel/Custom compounded combination therapy, and Dietary modification. Advantages and disadvantages of each option were discussed and the patients questions re: shoegear, custom vs prefabricated inserts, activity level, PO vs Topical medications (and their respective potential complications/drug interactions/side effects including the possible interaction with statin medications ), diet, and consistency in home treatment regimens for optimal success were answered to their verbally confirmed satisfaction, Handout given and reviewed, Medrol Dose Pack, ESR lab ordered, C-Reactive Protein, Quant, Uric acid labs, Also discussed use of Allopurinol to prevent future gout attacks, recommend pt talk... [facility] PCP for evaluation and managment.? ??Screening/Special Tests:?Fall Risk?Screening:?No falls in the past year ?FALLS: Screening for Future Fall Risk?Have you had any falls with injury in the past year??No * Follow Up:?prn * Images: * Sign off status: Completed true * Provider:?Sarah Serna DPM Date:?2024 Generated for Yadira lubin/Ekta/eTransmitting on:?01/20/2025 01:56 PM EDT History and Physical Notes * HPI (History of Present Illness) Category Sub-Category Detail Notes Category Not es Foot Pain Location: RIGHT midfoot and great toe Duration: , several weeks Onset: sudden Course: worse Aggravated: any pressure, not we aring inserts Treatments: rest/alter normal da walter activity Severity/Quality: moderate, severe Examination Category Sub-Category Detail Notes Category Not es Neurological SENSORY: Neurological exa m reveals intact sensorium, pain sensation normal, vibration sensation intact, pinprick sensation is normal in the lower extremities, Pt denies, anesthesia, burning, paresthesia, tingling, B/L TINEL'S COMPRESSION: Negative, Saphenous nerve distribution, Right Orthopedic GAIT ABNORMALITY: Pronated, abducted angl e and base of gate, B/L FOOT MORPHOLOGY: Pes Planus structure , Semi-rigid, B/L BUNION: Medially prominent 1 st MPJ, (+) Pain on palpation, inflammation present medially, Lateral tracking 1st MPJ incompletely reducible, RIGHT 1st MTPJ and IPJ joint (+) calor (+) erythema (+) edema, Crepitus with ROM present PAin on ROM FOOTWEAR EVALUATION: , good condition, e xhibit proper fit and accommodation for pedal deformities. OT were inspected and noted to be worn, but in good condition giving proper support at the present time DIGITAL DEFORMITIES: Digital contracture , PIPJ, 2-5 B/L, incompl-reducible with WB, or to push-up test, no over, nor underlapping MUSCLE STRENGTH: 5/5 all groups in a symmetrical fashion, B/L Vascular DORSALIS PEDIS PULSE: 2/4, B/L CAPILLARY REFILL: instantaneous, B/L TEMPERATURE GRADIENT: within normal limi ts POSTERIOR TIBIAL PULSE: 2/4, B/L General Examination GENERAL APPEARANCE: Reveals a pleasant, alert, well nourished, well-developed, well hydrated individual, who demonstrates proper attention to hygiene/body habitus, and is in no acute distress, Pt serves as own historian for office visit today FOOT EXAM: Lower Extremity Neurological Exa m performed:: Yes Visual exam of foot performed:: Yes Date: 12/15/2024 Sensory testing performed:: sensations n ormal Sensory and motor testing performed:: se nsations normal Pedal pulse taking performed:: 2+ ORIENTED: person, place, and t parker Footwear Evaluation Footwear Evaluation performe d:: Yes Ophthalmology Referral DIABETES EYE EXAM Procedure Perform ed:: No Eye Exam not performed:: No reason speci fied Retinal Screening Performed:: No Findings of Diabetic Eye Exam:: no retin opathy X-Rays - IMAGING REPORT Findings: normal b one and soft tissue density consistent for patients age and sex Fracture: Negative fractures i dentified HAV: increased Hallux Int erphalangeus angle with asymmetrical IPJ and joint degeneration, there is asymmetrical narrowing of the 1st MPJ joint space, there is increased density of the 1st MPJ with asymmetrical joint space narrowing, there is squaring of the 1st MTH, there is an exostosis located at the dorsal aspect of the 1st MTH Views: AP, LAT, MO, RIGHT T aken by trained Podiatric Trap Setter (MB ) Clinical Indication(s): Evaluate Biomech anical Deformity,Evaluate for Fracture,Evaluate for possible Gout
--- OUTSIDE RECORDS SUMMARY | 2025-01-20 13:56 | XMS_ITS ---
Author Organization [facility] Address [address] [place] [address] Care Team Providers Care First Crusher Name Role Phone Nikolas Webb MD Primary Care Provider Unava ilable Kareem, Sarah Unavailable [phone] REASON FOR VISIT Lab results Encounters Encounter Location Date Provider Diagnosis [facility] [address] [place] [address] 12/21/2024 Sarah Serna Plan Of Treatment No Information Progress Notes * Vazquez LAWRENCE DDOB:[birth year] (74 yo M)Acc No.[id number]:12/21/2024 Patient:?Vazquez LAWRENCE :1950???Age:74 Y???Sex:Male Address:[address] [place] [address], [address] * true * Date:? Generated for Virgili amee/Ekta/eTransmitting on:?01/20/2025 01:56 PM EDT
[2025-01-21] VITALS (10 sets, daily range): BP systolic 128–167; BP diastolic 61–99; PULSE 70–84; RESP 12–18; TEMP 36.1–36.8; O2SAT 98
--- NOTE | ~2025-01-21 | FL_ITS ---
EXAMINATION: FL GUIDANCE ONLY HISTORY: SI Joint Fusion Left COMPARISON: None available. TECHNIQUE: Fluoroscopy time: 37.5 seconds. Cumulative Dose: 18.110 mGy. DAP: 7.0759 mGym2 Images: 3. FINDINGS: Multiple fluoroscopic spot images of the left sacroiliac joint were obtained. FL/FL guidance in OR IMPRESSION: Fluoroscopy during procedure. Please see procedure report for additional information. Electronically signed by: Mihir Jacobs MD 01/21/2025 10:28 AM EDT
--- NOTE | 2025-01-21 07:07 | MHC.SHP ---
Pre-Procedural Eval Section A - 24 Hr Update-Section A only Date of Service: 01/21/25 The patient is an INPATIENT: No Changes since office visit: No Cold of Flu in the past 2 weeks, No New Medical Problems, No Changes in Medication and No Patient answered all questions The patient has been examined within 24 hours of the surgical procedure. The History & Physical has been completed within 30 days and I have reviewed it.: No Section B - Complete if H&P > 30 days Chief Complaint: Sacrococcygeal disorders,Dorsalgia, Allergies: Allergies Allergy/AdvReac Type Severity Reaction Status Date / Time eggplant Allergy Intermediate Vomiting Verified 01/19/25 13:55 Review of Systems Sugical H&P ROS: Negative: Constitution, Cardiovascular, Respiratory, Neurological, Psychiatric, Hem-Onc, Allergic/Immunologic, Gastrointestinal, Genitourinary, Musculoskeletal, Integumentary, Endocrine and Eyes/Ears/Nose/Throat Exam Surgical H&P Exam: Normal: HEENT, Normal: Heart, Normal: Lungs, Normal: Extremities, Normal: Abdomen, Normal: Skin and Normal: Neurological (awake, alert,oriented x 3 ) Plan Diagnosis/Plan: Unchanged left SI joint fusion Time Spent With Patient Time: Total time managing care of this patient today __5__ minutes.
--- NOTE | 2025-01-21 07:40 | PM.DS ---
DS: Providers Provider Date of Service: 01/21/25 Date of discharge: 01/21/25 Primary care physician: Nikolas Webb MD Admitting clinician: Enrike Ferro DS: Diagnosis Discharge Diagnosis (1) Back pain: Status: Acute DS: Summary Time Attestation Discharge Coordination Time (in mins): 4 Quality: Safe Use of Opioids Does Pt have an Active Cancer Diagnosis on the Problem List?: No Quality: Stroke Does the patient have a stroke diagnosis?: No Physical Exam Vital Signs: Vital Signs: BMI result Body Mass Index 24.8 Discharge Plan Discharge Patient Disposition: Home, Self-Care Referrals: Nikolas Webb MD [Primary Care Provider] - 1 Week Discharge Medications: New oxycodone 5 mg tablet 5 mg PO Q4H PRN (Reason: pain) Qty: 20 0RF Rx Instructions: Partial Fill upon patient request. docusate sodium [Colace] 100 mg capsule 100 mg PO BID Qty: 20 0RF Continued lisinopril 20 mg tablet 20 mg PO QAM metformin 500 mg tablet extended release 24 hr 1,000 mg PO BID rosuvastatin 5 mg tablet 5 mg PO BEDTIME Centrum Silver Men [id number] mcg Tablet 1 tab PO QAM Diet: Advance to usual diet Activity on Discharge: As tolerated Activity Restrictions/Additional Instructions: After your SI joint fusion surgery we ask you to observe the following restrictions/guidelines: Activity: It is normal to feel some discomfort as you increase your activity, but that will improve with time. We ask you avoid heavy lifting or acitivities that cause pain. As a general rule, 8lbs is a safe limit for lifting right after surgery. We ask you to stay off your left leg after surgery in order to help the SI joint fuse. Please use crutches or walker. You may return to driving when you are off narcotics (such as vicodin, oxycodone, dilaudid, etc), and you are back to normal functional capacity. If you have any concerns please check with office before driving. Return to work is specific to each patient and each surgery, so please speak with your doctor/PA at first follow up. Please bring paperwork such as FMLA at that time if you need it filled out. Follow up: Please call the office, , after surgery to arrange a 3 week follow up for wound check. Wound Care: Your wound was closed with glue, there are no sutures to remove. You may shower on post op day # 1. We ask that you do not let the water soak the wound. If it does get wet, just towel dry lightly. Please do not scrub your incision or place any type of chemical/ointment on the wound. No tub baths, pools or jacuzzis for one month. If you have any leaking or redness from your wound, or fevers, please call office Medications: We will give you a short supply of narcotics after surgery (usually one weeks worth). If you need more please call the office but do not use more than prescribed. You will need to give our office 48 hours notice if you need narcotics refilled and we do not fill narcotics on weekends or evenings. If you are on a narcotic, it is a good idea to take a stool softener such as colace or senna to avoid constipation If you take blood thinner such as aspirin, Plavix, Coumadin, Effient, Eliquis etc for conditions such as Afib, DVT, Pulmonary embolus, coronary disease, stents etc please speak with your surgeon about specific details as to when you can resume these medications. You can resume NSAIDs on post op day 1 (eg: Motrin, Naproxen, etc). Print Language: Romanian
[2025-01-21] MEDS: methocarbamoL 750 MG TABLET PO (07:57)
[2025-01-21] MEDS: Gabapentin 300 MG CAPSULE PO (07:57)
[2025-01-21 08:10] LABS: Glucose, Whole Blood 132 mg/dL (60-115)
--- NOTE | 2025-01-21 09:16 | W.PM.OPN ---
Operative Note Operative Note Date of Service: 01/21/25 Narrative: Preoperative diagnosis: Bilateral Sacroiliitis Postoperative diagnosis: Same Operative procedure: Left sacroiliac joint fusion with 1 allograft implant Surgeon: Enrike Ferro MD, PhD Auto Transmission Mechanic: Conrado Llamas PA-C Anesthesia: General Description of procedure: The patient is suffering from bilateral SI joint dysfunction refractory to nonoperative management. The patient has tried and failed all forms of conservative manage med except for an excellent short-term response to a sacroiliac joint injection. The sacroiliac joint was confirmed to be the pain generator after repeated pain blocks. The patient was offered surgical treatment with fixation and arthrodesis of the left SI joint. We will start with the left side and the patient will come back later for the right side. The patient was brought to the operating room and endotracheally intubated. The patient was turned in a prone position on Han spine table. Prepping and draping was done followed by a time-out. A C-arm was alternately positioned for lateral, oblique oblique and pelvic inlet and outlet projections througout the procedure. Skin markings were made for the anticipated position of the implant. A 2.5 cm longitudinal skin incision was made. A guide pin was inserted in an outlet oblique image for guidance follow-up insertion of dilator and working cannula. This was secured by placing an anchor pin into the ilium. Consideration was taken to cut channels utilizing a series of drills for decortication and internal fixation device placement. The implant was inserted such that it passed through the ilium, across the sacroiliac joint and into the sacrum, thus transfixing the sacroiliac joint. Proper positioning was confirmed on lateral fluoroscopy. The implant was packed with autologous bone collected from remain of the sacrum and ilium. Additional graft material was inserted into the channel void following the implant. The instruments were withdrawn. Upon completion, final images were obtained that showed a satisfactory position of the implant. Hemostasis was done. The incision was closed with an 0 Vicryl to fashion a 3-0 Vicryl subdermal layer after injecting Marcaine. Dermabond was used to approximate the surgeon. All sponge and needle counts were correct. Patient was extubated and transported in a stable condition to recovery room. Estimated blood loss: 10 Complications: None Operative time: 35 minutes Disposition: Discharge to home
[2025-01-21] MEDS: fentaNYL citrate/PF 100 MCG/2 ML VIAL 50 MCG IVPUSH ×2 (09:45→09:50)
== END 2025-01-21 11:01 | disposition home or self-care (01) ==
PROVIDERS: PCP Internal Medicine; Visit Provider Neurological Surgery
PROC: (CPT 27279; principal; 2025-01-21 09:00)
DX: M46.1 Sacroiliitis, not elsewhere classified (principal); M53.3 Sacrococcygeal disorders, not elsewhere classified; M54.9 Dorsalgia, unspecified; R26.2 Difficulty in walking, not elsewhere classified; E78.00 Pure hypercholesterolemia, unspecified; I10 Essential (primary) hypertension; E11.9 Type 2 diabetes mellitus without complications; Z79.84 Long term (current) use of oral hypoglycemic drugs; Z79.899 Other long term (current) drug therapy; Z66 Do not resuscitate; Z98.890 Other specified postprocedural states
CPT/HCPCS: 27279; 82947; C1713; J0131; J0690; J1100; J1885; J2003; J2250; J2405; J2704; J3010; L8699

== ENCOUNTER → 2025-01-21 07:20 | Outpatient (BNV) | payer MEDICARE, SELFPAY | PROVIDERS: PCP Internal Medicine; Visit Provider Physician Assistant | DX: M46.1 Sacroiliitis, not elsewhere classified (principal) | CPT/HCPCS: 27279; 99499 ==

== ENCOUNTER 2025-02-12 11:01 | Outpatient (AMB) | payer MEDICARE, SELFPAY ==
--- NOTE | 2025-02-12 11:30 | A.SPINEOV_ITS ---
Intake Visit Reasons: 1st post op Intake Note: Mr. Nicolas is here today for his 1st post op. Instructor Adjunct Surgical Technician Required: No Allergies eggplant Allergy (Intermediate, Verified 02/12/25 11:30) Vomiting Assessment & Plan Assessment & Plan (1) Back pain: Code(s): M54.9 - Dorsalgia, unspecified Category: Medical Plan Dear Dr Rob I just saw Vazquez Nicolas back for his 1st postoperative visit. About 3 weeks ago we did a left SI joint fusion on him after he had had excellent results with your lateral branch blocks. He has been recovering from the surgery very nicely. The pain in the SI joint is completely gone. He has been able to get up out of his chair and move around. He is very happy with the results. He was having some right SI joint pain but that seems to have quieted down a bit too. We could always do that side if the pain returns but for now he is happy with ho w things are going. I have allowed him to increase his activities and come off the crutches. I will see him back in 6-8 weeks with a set of x-rays. Conrado Ferro MD, PhD [facility] Orders: Orders XR pelvis min 3V Today M54.9 - Dorsalgia, unspecified Coding Level of Care Code Global (06372) Diagnoses Back pain M54.9
--- OUTSIDE RECORDS SUMMARY | 2025-02-12 11:33 | XMS_ITS ---
Author Organization [facility] Address [address] [place] [address] Care Team Providers Care Automatic Packer Operator Name Role Phone Nikolas Webb MD Primary Care Provider Unava ilable Sarah Serna Unavailable [phone] REASON FOR VISIT A1C Encounters Encounter Location Date Provider Diagnosis [facility] [address] [place] [address] 12/15/2024 Sarah Serna Plan Of Treatment No Information Progress Notes * Vazquez LAWRENCE DDOB:[birth year] (74 yo M)Acc No.[id number]:12/15/2024 Patient:?Vazquez LAWRENCE :1950???Age:74 Y???Sex:Male Address:[address] [place] [address], [address] * true * Date:? Generated for Printi amee/Ekta/eTransmitting on:?02/12/2025 11:33 AM EDT
--- OUTSIDE RECORDS SUMMARY | 2025-02-12 11:33 | XMS_ITS | Patient Health Record ---
Author Organization [facility] Address [address] [place] [address] Care Team Providers Care Principal Network Engineer Name Role Phone Nikolas Webb MD Primary Care Provider Unaguero ilable Black, Sarah Unavailable [phone] Allergies Allergen (clinical drug ingredient) Drug/Non Drug Allergy documented on EMR Reaction Allergy Type Onset Date Status Eggplant (uncoded) vomiting Allergy A ctive Results Component Value Reference Range Notes X ray : Foot, right 3V Reviewed date:12/15/2024 05:05:15 PM Interpretation:See Examination above Performing Lab: Notes/Report: See Examination above HEMOGLOBIN A1C (GLYCOHEMOGLO BIN) Reviewed date:12/15/2024 03:22:35 PM Interpretation: Performing Lab: Notes/Report: HEMOGLOBIN A1C % (HH) 6.5 Reason For Referral No Information Medications Medication [...] Problem Type II diabetes mellitus without complication (304632665) Type 2 diabetes mellitus without complications (E11.9) Active confirmed Problem Acquired hallux valgus (02368414) 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) Active confirmed Problem Localized, primary osteoarthritis of the ankle and/or foot (108744062) Osteoarthritis of left ankle and foot (M19.072) Active confirmed Problem 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 (026881000) Acute idiopathic gout involving toe of right foot (M10.071) Active confirmed Vital Signs Blood pressure diastolic 68 mm Hg 12/15/2024 Height 5 ft 10 in in 12/15/2024 Blood pressure systolic 118 mm Hg 12/15/2024 Weight 160 lbs 12/15/2024 BMI 22.96 kg/m2 12/15/2024 Encounters Encounter Location Date Provider Diagnosis [facility] [address] [place] [address] 12/15/2024 Sarah Black Pain in right foot M79.671 ; Acute idiopathic gout involving toe of right foot M10.071 ; Pain in right ankle and joints of right foot M25.571 ; Bursitis of right foot M77.51 ; Acquired hallux interphalangeus of right foot M20.11 ; Osteoarthritis of left ankle and foot M19.072 and Type 2 diabetes mellitus without complications E11.9 [facility] [address] 10/19/2024 [facility]dorys Serna [facility] [address] 11/02/2024 [facility]domingo S[facility] [address] 12/15/2024 Sarah Serna [facility] [address] 12/21/2024 Sarah Serna Assessments Encounter Date Diagnosis [...] Medicare National [employer]t [employer] [address] [place] [address] [id number] Vazquez Nicolas Self - patient is the insured 3 [employer] [facility] [address] [place] [address] [phone] [id number] Vazquez Nicolas Self - patient is the insured Medical (General) History Medical History History ICD Code Diabetic Hypertension Measles Mumps Back,Hip,and Knee pain covid-19 Gout Surgical History Surgery Date(Month/Year) Hernia
--- OUTSIDE RECORDS SUMMARY | 2025-02-12 11:34 | XMS_ITS ---
Author Organization [facility] Address [address] [place] [address] Care Team Providers Care Developer Advisor Name Role Phone Nikolas Webb MD Primary Care Provider Unava ilable Kareem, Sarah Unavailable [phone] REASON FOR VISIT Lab results Encounters Encounter Location Date Provider Diagnosis [facility] [address] [place] [address] 12/21/2024 Sarah Serna Plan Of Treatment No Information Progress Notes * Vazquez LAWRENCE DDOB:[birth year] (74 yo M)Acc No.[id number]:12/21/2024 Patient:?Vazquez LAWRENCE :1950???Age:74 Y???Sex:Male Address:[address] [place] [address], [address] * true * Date:? Generated for Virgili amee/Ekta/eTransmitting on:?02/12/2025 11:33 AM EDT
--- OUTSIDE RECORDS SUMMARY | 2025-02-12 11:34 | XMS_ITS ---
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) Active confirmed Problem Localized, primary osteoarthritis of the ankle and/or foot (316638228) Osteoarthritis of left ankle and foot (M19.072) Active confirmed Problem Type II diabetes mellitus without complication (549315771) Type 2 diabetes mellitus without complications (E11.9) Active confirmed Vital Signs Blood pressure systolic 118 mm Hg 12/16/19 25 Blood pressure diastolic 68 mm Hg 025 Height 5 ft 10 in in 12/15/2024 Weight 160 lbs 12/15/2024 BMI 22.96 kg/m2 12/15/2024 Encounters Encounter Location Date Provider Diagnosis [facility] [address] 12/15/2024 Sarah Black Pain in right foot [...] Vazquez LAWRENCE DDOB:[birth year] (74 yo M)Acc No.[id number]:12/15/2024 Progress Notes Patient:?Vazquez LAWRENCE Provider:?Sarah Serna DPM :1950???Age:74 Y???Sex:Male Donavan e:12/15/2024 Address:[address] [place], [place] [id number] Pcp:Nikolas Webb MD Subjective: * Chief Complaints: [...] ?Exercise: no. ?Marital status: . ?Occupation: retired [employer]. ???Drug/Alcohol:?AUDIT-C (Standard)?Did you have a drink containing [...] possible Gout.?Views:?AP, LAT, MO, RIGHT??Taken by trained?Podiatric High Climber (MB?).?Findings:?normal bone and soft tissue density consistent [...] Date - 12/15/2024)?See Examination above * Procedure Codes:?19025 X-RAY EXAM OF RIGHT FOOT 3V, Modifiers: [...] exercise to failure, expense, systemic complications, infection, [id number], prolongued postop course. Patient questions re: the various treatment options available, their successes and potential failures, and shelter effects were discussed and the answers were [...] prevent future gout attacks, recommend pt talk... [facility] PCP for evaluation and managment.? ??Screening/Special Tests:?Fall Risk?Screening:?No falls in the past year ?FALLS: Screening for Future Fall Risk?Have you had any falls with injury in the past year??No * Follow Up:?prn * Images: * Sign off status: Completed true * Provider:?Sarah Serna DPM Date:?2024 Generated for Yadira lubin/Ekta/eTransmitting on:?02/12/2025 11:33 AM EDT History and Physical Notes * HPI [...] MO, RIGHT T aken by trained Podiatric High Climber (MB ) Clinical Indication(s): Evaluate Biomech anical Deformity,Evaluate for Fracture,Evaluate for possible Gout
== END 2025-02-12 12:09 | disposition home or self-care (01) ==
LOC: HO.HNS 11:02
PROVIDERS: PCP Internal Medicine; Visit Provider Physician Assistant
DX: M54.9 Dorsalgia, unspecified (principal)
CPT/HCPCS: 99024

== ENCOUNTER 2025-02-12 11:01 | Outpatient (REF) | payer MEDICARE, SELFPAY | END 2025-02-12 11:02 | disposition home or self-care (01) | LOC: HO.HOSX 11:01 | PROVIDERS: PCP Internal Medicine; Visit Provider Physician Assistant | DX: M54.9 Dorsalgia, unspecified (principal) | CPT/HCPCS: 99212 ==

== ENCOUNTER 2025-03-26 11:32 | Outpatient (REF) | payer MEDICARE, SELFPAY ==
--- NOTE | ~2025-03-26 | XR_ITS ---
EXAMINATION: XR PELVIS CLINICAL INFORMATION: M54.9 - Dorsalgia, unspecified COMPARISON: October 06, 2024 TECHNIQUE: AP view of the pelvis. FINDINGS: Mild sclerosis is present along the SI joints, greater on the left, increased since the prior. There are small marginal osteophytes. Hip joints are congruent without narrowing. Pubic symphysis joint is unremarkable. Vascular calcifications are visible in the pelvis. XR/XR pelvis min 3V IMPRESSION: Mild degenerative changes of the SI joints, increased since the prior. Electronically signed by: Dre Chaparro MD 03/26/2025 12:17 PM EDT
== END 2025-03-26 11:33 | disposition home or self-care (01) ==
LOC: HO.HOSX 11:32
PROVIDERS: PCP Internal Medicine; Visit Provider Physician Assistant
DX: M54.9 Dorsalgia, unspecified (principal)
CPT/HCPCS: 72190; 99212

== ENCOUNTER 2025-03-26 11:32 | Outpatient (AMB) | payer MEDICARE, SELFPAY ==
--- NOTE | 2025-03-26 11:41 | A.SPINEOV_ITS ---
Intake Visit Reasons: 2nd post op with Xrays Intake Note: Mr. Nicolas is here today for his 2nd post op with x-rays. Historic Sites Supervisor Required: No Allergies eggplant Allergy (Intermediate, Verified 02/12/25 11:30) Vomiting Assessment & Plan Assessment & Plan (1) Back pain: Code(s): M54.9 - Dorsalgia, unspecified Category: Medical Plan Mr Nicolas is 2 months out from his SI joint fusion on the left side. He was doing well until about 2 weeks ago when he lifted something very heavy, but 175 lb dried fruit washer and strained his back. He has been recovering from that with some massage therapy and inik-yjz-xzgbcuv medications. Seems to be back pad inspector to normal now. Prior to that he was doing excellent, he can stand up straight and is very happy had the surgery. His x-rays today show stable positioning of the implant. At this point he has no restrictions. We can see him back on an as-needed basis. I told him to monitor his low back situation and if the pain did not get better we can reassess. Conrado Ferro MD, PhD [facility] Orders: Orders PT Evaluation and Treatment Today M54.9 - Dorsalgia, unspecified Coding Level of Care Code Global (33827) Diagnoses Back pain M54.9
--- OUTSIDE RECORDS SUMMARY | 2025-03-26 11:56 | XMS_ITS | Patient Health Record ---
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) Active confirmed Problem Localized, primary osteoarthritis of the ankle and/or foot (364508137) Osteoarthritis of left ankle and foot (M19.072) Active confirmed Problem 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 (771536867) Acute idiopathic gout involving toe of right foot (M10.071) Active confirmed Vital Signs Blood pressure diastolic 68 mm Hg 12/15/2024 Height 5 ft 10 in in 12/15/2024 Blood pressure systolic 118 mm Hg 12/15/2024 Weight 160 lbs 12/15/2024 BMI 22.96 kg/m2 12/15/2024 Encounters Encounter Location Date Provider Diagnosis [facility] [address] [place] [address] 12/15/2024 Sarah Black Pain in right foot M79.671 ; Acute idiopathic gout involving toe of right foot M10.071 ; Pain in right ankle and joints of right foot M25.571 ; Bursitis of right foot M77.51 ; Acquired hallux interphalangeus of right foot M20.11 ; Osteoarthritis of left ankle and foot M19.072 and Type 2 diabetes mellitus without complications E11.9 [facility] [address] 10/19/2024 [facility]dorys Serna [facility] [address] 11/02/2024 Sarahdomingo Serna [facility] [address] 12/15/2024 Sarah Serna [facility] [address] 12/21/2024 Sarah Serna Assessments Encounter Date Diagnosis [...] Medicare National [employer]t [employer] [address] [place] [address] [id number] Vazquez Nicolas Self - patient is the insured 3 [employer] [facility] [address] [place] [address] [id number] Vazquez Nicolas Self - patient is the insured Medical (General) History Medical History History ICD Code Diabetic Hypertension Measles Mumps Back,Hip,and Knee pain covid-19 Gout Surgical History Surgery Date(Month/Year) Hernia
== END 2025-03-26 12:06 | disposition home or self-care (01) ==
LOC: HO.HNS 11:33
PROVIDERS: PCP Internal Medicine; Visit Provider Physician Assistant
DX: M54.9 Dorsalgia, unspecified (principal)
CPT/HCPCS: 99024

== ENCOUNTER → 2025-03-26 11:36 | Outpatient (BNV) | payer MEDICARE, SELFPAY | PROVIDERS: PCP Internal Medicine; Visit Provider Radiology Diagnostic Radiology | DX: M54.9 Dorsalgia, unspecified (principal) | CPT/HCPCS: 72190 ==